=== PATIENT | female | born 1980 | race Caucasian/White ===

== ENCOUNTER 2022-10-19 20:24 | Emergency (ER) | payer MEDICAID, SELFPAY ==
--- NOTE | ~2022-10-19 | XR_ITS ---
EXAMINATION: XR CHEST CLINICAL INFORMATION: Shortness of breath, cough COMPARISON: None TECHNIQUE: Frontal view of the chest was obtained. FINDINGS: Patchy coarse interstitial opacities are seen. No dense focal consolidation. No pleural effusion or pneumothorax. Normal heart size. Regional skeleton intact. XR/XR chest 1V IMPRESSION: Patchy coarse interstitial opacities are seen, suggesting multifocal infection or inflammation. COVID viral pneumonitis could have this appearance.
[2022-10-19 20:42] VITALS: BP 148/77; PULSE 77; RESP 20; TEMP 36.1; O2SAT 95; BMI 33.6
[2022-10-19 21:18] LABS: COVID-19 Test Negative (Negative); IDNOW Serial# 16C4AD1C; IDNOW Serial# BCCEAD1C; Influenza A Negative (Negative); Influenza B2 Negative (Negative)
[2022-10-19 21:50] VITALS: BP 150/89; PULSE 88; RESP 17; TEMP 36.8; O2SAT 92
--- NOTE | 2022-10-19 22:20 | ED_ITS ---
HPI - URI/Sore Throat General Chief Complaint: Upper Respiratory Symptoms Stated Complaint: sob/cough Time Seen by Provider: 10/19/22 21:58 Source: patient Mode of arrival: ambulatory Limitations: no limitations History of Present Illness HPI Narrative: This is a 42-year-old female no significant medical history presenting to the emergency department complaints of dry cough, fatigue, malaise, runny nose, congestion, subjective fevers and chills times a week and a half. Patient tells me that these symptoms have been worsening. She tells me she feels short of breath when she coughs however not when she is not coughing. Denies sick contacts, chest pain, nausea, vomiting, abdominal pain, headache, vision changes, dizziness, weakness. To note patient is a current daily smoker smokes about 10 cigarettes a day. Related Data Previous Rx's Medication Instructions Recorded albuterol sulfate 90 mcg/actuation 2 inh inhalation Q4-6H PRN 10/19/22 breath activated powder inhaler shortness of breath or wheezing #1 ea azithromycin 250 mg tablet See Rx Instructions PO .COMPLEX #6 10/19/22 tabs doxycycline hyclate 100 mg capsule 100 mg PO BID 10 days #20 caps 10/19/22 prednisone 20 mg tablet 40 mg PO DAILY 5 days #10 tabs 10/19/22 Allergies Allergy/AdvReac Type Severity Reaction Status Date / Time phenobarbital [PHENOBARBITAL] Allergy Unknown RASH Verified 10/19/22 20:45 Review of Systems Review of Systems: Constitutional : No Weight loss, No Fever, No Chills, + Fatigue, + Malaise ENT/Mouth : No sore throat, No Rhinorrhea Eyes: No Eye Pain, No Swelling, No Redness Cardiovascular : No Chest Pain, + SOB, No Dyspnea on Exertion, No Orthopnea, No Edema, No Palpitations Respiratory : + Cough, No Sputum, No Wheezing Gastrointestinal : No Nausea, No Vomiting, No Diarrhea, No Constipation, No abdominal Pain, No Hematochezia, No Melena Genitourinary : No Dysuria, No Urinary Frequency, No Hematuria, Musculoskeletal : No joint pain, No Myalgias, No Joint Swelling Skin : No Skin Lesions, No rash Neuro : No Weakness, No Numbness, No Dizziness, No Headache Psych : No Anxiety/Panic, No Depression All other systems reviewed and are negative Yes all other systems are reviewed and are negative PMFSH Past Medical History Attestation statement: The following information was validated with the patient. Source: old records reviewed and nursing notes reviewed Social History Social History Advance Directives: No Advance Directives Information Provided: Yes Physical Exam Vital Signs: Vital Signs: Last Vital Signs Temp 98.2 F 10/19/22 21:50 Pulse 71 10/19/22 22:36 Resp 18 10/19/22 22:36 BP 150/89 H 10/19/22 21:50 Pulse Ox 92 10/19/22 21:50 O2 Del Method 10/19/22 21:50 BMI result Body Mass Index 33.6 vss Appearance: Alert.? Oriented X3.? No acute distress.? Patient appears comfortable no acute distress. Speaking in full sentences. Head: Normocephalic, atraumatic, no step-offs or deformities Eyes: Pupils equal, round and reactive to light.? ENT: Pharynx normal.? Neck: Normal inspection.? Neck supple.? CVS: Normal heart rate and rhythm.? Pulses normal.? Respiratory: No respiratory distress.? Breath sounds w/ expiratory wheezing throughout.? Abdomen: Soft and nontender.? Skin: Skin warm and dry.? Normal skin color.? Normal skin turgor.? Extremities: No lower extremity edema.? No calf ttp. 5/5 strength to bilateral upper and lower extremities Neuro: Oriented X 3.? No motor deficit.? No sensory deficit. CN 2-12 intact Course Reevaluation(s) Reevaluation #1: Patient negative for influenza and COVID. Chest x-ray showing patchy coarse interstitial opacities, suggesting multifocal infection or inflammation. Will treat patient for pneumonia with doxycycline and azithromycin. Will discharge home with prednisone. To note I did have patient ambulated by nursing, patient is ambulatory O2 saturation 96-97% on room air. Patient well-appearing, wheezing improved after treatment. Patient will be discharged home with albuterol. Educated patient on diagnosis and treatment plan, answered all question, patient verbalizes understanding. At this time patient will be discharged home, advised to return with new or worsening symptoms. Educated on worrisome signs and symptoms and when to return. At this time I feel comfortable discharge home. Time: 23:13 Medications Administered Discontinued Medications Generic Name Dose Route Start Last Admin Trade Name Freq PRN Reason Stop Dose Admin Albuterol Sulfate 5 mg/ 7.5 mg 10/19/22 22:18 10/19/22 22:33 Albuterol Sulfate 2.5 mg INHALE 10/19/22 22:19 7.5 mg ONCE ONE Administration Medical Decision Making Medical Decision Making [facility] Narrative: 2220 This is a 42-year-old female presenting with upper respiratory symptoms for a week and a half worsening. Physical exam with expiratory wheezing throughout. Concerns for upper respiratory viral infection. Unlikely PE, pneumonia, ACS, CHF. Patient PERC negative. Patient is noted to be 92% on room air will give albuterol nebulizing treatment Plan at this time viral testing chest x-ray. Differential Diagnosis Differential Diagnoses: The differential diagnosis associated with the presentation includes Concerns for upper respiratory viral infection. Unlikely PE, pneumonia, ACS, CHF. Patient PERC negative. Admission/Observation Consideration of admission/observation: Escalation of care including admission/observation considered Unlikely Lab Data [facility] Lab Attestation statement: I reviewed the patient's lab results. Labs: Lab Results 10/19/22 10/19/22 Range/Units 20:53 20:53 COVID-19 (ISAEL) Negative (Negative) COVID-19 Clin Com See Note Influenza Type A (STEVIE) Negative (Negative) Influenza Type B (STEVIE) Negative (Negative) Influenza A & B Note See Note Independent Interpretation I performed an independent interpretation of an: Plain X-Ray (Multifocal infection) Radiology Impression Discussion of test interpretation with radiology: I have reviewed the radiologist's reading. Core Measures AMI core measures followed: Yes Measure exclusions: not indicated Critical Care Time Critical Care Time Critical Care Time: No Discharge Plan Discharge Clinical Impression: Pneumonia Patient Disposition: Home, Self-Care Instructions: Upper Respiratory Infection (ED) Additional Instructions: Take your medications as prescribed. If you were prescribed antibiotics today, it is important that you take your medication to their entirety, do not skip any doses, do not finish them early. Follow-up with your primary care provider this week. Return to the emergency department with new or worsening symptoms. Such as fevers, chills, chest pain, shortness of breath, nausea, vomiting, dizziness, headache, vision changes, lethargy In case of emergency call 911 ?XR/XR chest 1V IMPRESSION: Patchy coarse interstitial opacities are seen, suggesting multifocal infection or inflammation. COVID viral pneumonitis could have this appearance. ? Prescriptions: New prednisone 20 mg tablet 40 mg PO DAILY 5 Days Qty: 10 0RF albuterol sulfate 90 mcg/actuation aerosol powdr breath activated 2 inh inhalation Q4-6H PRN (Reason: shortness of breath or wheezing) Qty: 1 0RF doxycycline hyclate 100 mg capsule 100 mg PO BID 10 Days Qty: 20 0RF azithromycin 250 mg tablet See Rx Instructions .ROUTE .COMPLEX Qty: 6 0RF Rx Instructions: For 250 mg dose pack: take 500 mg today (day 1), then 250 mg for 4 days (days 2-5) Referrals: Physician,Unknown J [Primary Care Provider] - 2 days Stand Alone Forms: Work/School Release
[2022-10-19] MEDS: Albuterol Sulfate 5 MG, Albuterol Sulfate (0.083%) 2.5 MG 7.5 MG INHALE (22:33)
[2022-10-19 22:36] VITALS: PULSE 71; RESP 18; O2SAT 93
--- NOTE | 2022-10-19 22:37 | PC.NURSE ---
pt alert and oriented x3, rec updraft from respiratory. awaiting cxr results. call moy within reach
--- NOTE | 2022-10-19 22:59 | PC.NURSE ---
ambulated with pt around dept SpO2 ranging form 96-97% 98bpm, during ambulation. prior to ambulation SpO2 98% 86bpm
== END 2022-10-19 23:20 | disposition home or self-care (01) ==
PROVIDERS: Emergency Provider Internal Medicine
DX: J18.9 Pneumonia, unspecified organism (principal); R06.02 Shortness of breath; R05.9 Cough, unspecified; F17.210 Nicotine dependence, cigarettes, uncomplicated; Z20.828 Contact with and (suspected) exposure to other viral communicable diseases; Z20.822 Contact with and (suspected) exposure to COVID-19; Z79.899 Other long term (current) drug therapy; Z71.6 Tobacco abuse counseling
CPT/HCPCS: 71045; 87502; 87635; 94640; 99284

== ENCOUNTER 2023-02-17 01:07 | Emergency (ER) | payer MEDICAID, SELFPAY ==
[2023-02-17 01:10] VITALS: BP 140/82; PULSE 98; RESP 18; TEMP 36.6; O2SAT 87; BMI 30.7
--- NOTE | 2023-02-17 03:01 | ED_ITS ---
HPI - General Adult General Chief complaint: ETOH/Substance Use Stated complaint: Vaginal itching/Wound buttocks/Drug Use Time Seen by Provider: 02/17/23 01:46 Source: patient Mode of arrival: EMS Limitations: no limitations History of Present Illness HPI narrative: Patient with History of substance abuse plan to go to detox comes here as she has vaginal discharge and rash on the right buttocks for last 1 week. Patient had unprotected sex and unaware how she got the rash on her right buttock which is weeping now looks like a road rash no abscess patient uses drugs earlier been falling sleep while when arrived saturating more than 95% at room air Related Data Previous Rx's Medication Instructions Recorded albuterol sulfate 90 mcg/actuation 2 inh inhalation Q4-6H PRN 10/19/22 breath activated powder inhaler shortness of breath or wheezing #1 ea azithromycin 250 mg tablet See Rx Instructions PO .COMPLEX #6 10/19/22 tabs doxycycline hyclate 100 mg capsule 100 mg PO BID 10 days #20 caps 10/19/22 prednisone 20 mg tablet 40 mg PO DAILY 5 days #10 tabs 10/19/22 doxycycline hyclate 100 mg tablet 100 mg PO BID #20 tabs 02/17/23 metronidazole 500 mg tablet 500 mg PO BID 7 days #14 tabs 02/17/23 silver sulfadiazine 1 % topical 1 appl topical BID #50 grams 02/17/23 cream (Silvadene) Allergies Allergy/AdvReac Type Severity Reaction Status Date / Time phenobarbital [PHENOBARBITAL] Allergy Unknown RASH Verified 10/19/22 20:45 Review of Systems Review of Systems: Yes all other systems are reviewed and are negative PMFSH Social History Social History Alcohol intake: current Alcohol intake frequency: 0-2 drinks per day Smoked in Last 30 Days: Yes Use of substances other than those prescribed or required for medical reasons: Yes Substance Use Type: Heroin Substance Use Frequency: Chronic Longstanding Advance Directives: No Advance Directives Information Provided: Yes Physical Exam ED Vital Signs: Vital Signs - 24 hr 02/17/23 01:10 02/17/23 04:01 Temperature 98 F 98.5 F Pulse Rate 98 71 Respiratory Rate 18 12 Blood Pressure 140/82 H 98/59 L Pulse Oximetry 87 L 97 Oxygen Delivery Method Room Air Nasal Cannula Oxygen Flow Rate 3 BMI result Body Mass Index 30.7 Appearance: Alert. Oriented X3. No acute distress. Unkept with signs of drug abuse IVDA Eyes: PERRLA, No Nystagmus ENT: Pharynx normal. Oral Mucosa moist Neck: Normal inspection. Neck supple. CVS: Normal heart rate and rhythm. Pulses normal. Respiratory: No respiratory distress. Equal air entry bilateral, no wheezing/rales/rhonchi Abdomen: Soft and nontender. Bowel sounds are present, no mass palpable, no CVA tenderness Skin: Skin warm and dry. Normal skin color. Normal skin turgor. Friction rash right buttock with clear discharge no abscess thick purulent yellowish colored discharge Extremities: No lower extremity edema. No calf tenderness Neuro: Oriented X 3. No motor deficit. Medications Administered Discontinued Medications Generic Name Dose Route Start Last Admin Trade Name Freq PRN Reason Stop Dose Admin Azithromycin 1,000 mg 02/17/23 02:14 02/17/23 03:30 Azithromycin 500 Mg Tablet PO 02/17/23 02:15 1,000 mg ONCE ONE Administration Ceftriaxone Sodium 500 mg 02/17/23 02:14 02/17/23 03:14 Ceftriaxone Sodium 500 Mg Vial IM 02/17/23 02:15 500 mg ONCE ONE Administration Doxycycline Monohydrate 100 mg 02/17/23 03:02 02/17/23 03:30 Doxycycline Monohydrate 100 Mg Capsule PO 02/17/23 03:03 100 mg ONCE ONE Administration Metronidazole 500 mg 02/17/23 02:14 02/17/23 03:30 Metronidazole 500 Mg Tablet PO 02/17/23 02:15 500 mg ONCE ONE Administration Silver Sulfadiazine 1 appl 02/17/23 02:14 02/17/23 03:13 Silver Sulfadiazine 1 % Cream 20 Gm Tube TOPICAL 02/17/23 02:15 1 appl ONCE ONE Administration Medical Decision Making Medical Decision Making [facility] Narrative: Patient with bacterial vaginosis with friction rash with history of substance abuse already has a plan to go to detox will treat for STDs Lab Data [facility] Lab Attestation statement: I reviewed the patient's lab results. Labs: Lab Results 02/17/23 02/17/23 Range/Units 03:10 05:28 Urine Color Dark Yellow Urine Appearance Cloudy Urine pH 6.0 (5.0-9.0) Ur Specific [place] >= 1.030 H (1.005-1.025) Urine Protein 30 (1+) H (Neg-Trace) mg/dL Urine Glucose (UA) Negative (Negative) mg/dL Urine Ketones Trace (Negative) mg/dL Urine Blood Negative (Negative) Urine Nitrite Negative (Negative) Ur Leukocyte Esterase Small (1+) H (Negative) Chlam trachomat DNA PCR NOT DETECTED (Not Detect.) N.gonorrhoeae DNA (PCR) NOT DETECTED (Not Detect.) Discharge Plan Discharge Clinical Impression: Friction burn, Bacterial vaginosis, Substance abuse Patient Disposition: Home, Self-Care Instructions: Bacterial Vaginosis (ED), Abrasion (ED), Polysubstance Abuse (ED) Additional Instructions: Stop using drugs Follow-up with detox as planned Local care of the friction wound Antibiotics as prescribed Prescriptions: New doxycycline hyclate 100 mg tablet 100 mg PO BID Qty: 20 0RF metronidazole 500 mg tablet 500 mg PO BID 7 Days Qty: 14 0RF silver sulfadiazine [Silvadene] 1 % cream 1 appl topical BID Qty: 50 0RF Rx Instructions: apply a 1.5 mm thickness No Action prednisone 20 mg tablet 40 mg PO DAILY 5 Days Qty: 10 0RF albuterol sulfate 90 mcg/actuation aerosol powdr breath activated 2 inh inhalation Q4-6H PRN (Reason: shortness of breath or wheezing) Qty: 1 0RF doxycycline hyclate 100 mg capsule 100 mg PO BID 10 Days Qty: 20 0RF azithromycin 250 mg tablet See Rx Instructions .ROUTE .COMPLEX Qty: 6 0RF Rx Instructions: For 250 mg dose pack: take 500 mg today (day 1), then 250 mg for 4 days (days 2-5) Interventions: ED Discharge Assessment Last Done: 02/17/23 04:45 Discharge Date/Time: 02/17/23 05:41
[2023-02-17] MEDS: Silver Sulfadiazine 1 % Cream 20 GM TUBE 1 APPL TOPICAL (03:13)
[2023-02-17] MEDS: cefTRIAXone sodium 500 MG VIAL IM (03:14)
[2023-02-17] MEDS: Doxycycline Monohydrate 100 MG CAPSULE PO (03:30)
[2023-02-17] MEDS: metroNIDAZOLE 500 MG TABLET PO (03:30)
[2023-02-17] MEDS: Azithromycin 500 MG TABLET 1000 MG PO (03:30)
--- NOTE | 2023-02-17 03:33 | PC.NURSE ---
Pt ca&ox3. no signs of distress. Pt denies chest pain and sob. Pt medicated per mar. Will continue to monitor.
[2023-02-17 04:01] VITALS: BP 98/59; PULSE 71; RESP 12; TEMP 36.9; O2SAT 97
[2023-02-17 04:53] LABS: CT PCR NOT DETECTED (Not Detect.); NG PCR NOT DETECTED (Not Detect.)
--- NOTE | 2023-02-17 04:53 | PC.NURSE ---
Discharge instructions given and explained to pt no apparent distress pt L with male friend all of pt's questions answered amb safely/independently aox4
[2023-02-17 05:35] LABS: Appearance Urine Cloudy; Color Urine Dark Yellow; Glucose Urine UA Negative (Negative); Leukocyte Esterase Urine Small (1+) (Negative); Nitrite Urine Negative (Negative); Specific Gravity - Urine >= 1.030 (1.005-1.025); UMIC TRIGGER UACC YES; Urine Blood Negative (Negative); Urine Ketones Trace mg/dL (Negative); Urine Protein 30 (1+) mg/dL (Neg-Trace)
[2023-02-17 05:40] LABS: Bacteria Urine 1+ (None Seen); Hyaline Casts Urine 0-2 /LPF (0-2); RBC Urine 0-2 /HPF (0-2); UACC Culture Trigger YES
[2023-02-17 10:44] LABS: BV Int Neg Control Negative (Negative); BV Int Pos Control Positive (Positive)
== END 2023-02-17 05:41 | disposition home or self-care (01) ==
PROVIDERS: Emergency Provider Internal Medicine
DX: S30.810A Abrasion of lower back and pelvis, initial encounter (principal); X58.XXXA Exposure to other specified factors, initial encounter; R21 Rash and other nonspecific skin eruption; N76.0 Acute vaginitis; F19.10 Other psychoactive substance abuse, uncomplicated; Y93.9 Activity, unspecified; Y92.9 Unspecified place or not applicable; Y99.9 Unspecified external cause status; Z79.899 Other long term (current) drug therapy
CPT/HCPCS: 0353U; 81001; 87086; 87480; 87510; 87660; 96372; 99284; 99285; J0696

== ENCOUNTER 2023-02-23 14:46 | Emergency (ER) | payer MEDICAID, SELFPAY | END 2023-02-23 16:31 | disposition left against medical advice (07) | LOC: HO.ED 16:25 | PROVIDERS: Emergency Provider Emergency Medicine | DX: R40.4 Transient alteration of awareness (principal); R45.1 Restlessness and agitation ==